=== PATIENT | male | born 2000 | race African-American/Black ===

== ENCOUNTER 2020-07-13 17:48 | Emergency (ER) | payer OTHER ==
--- NOTE | 2020-07-13 18:30 | EDPHYS ---
Physician Documentation [facility] Name: Marquise Ferreira Age: 19 yrs Sex: Male : 2000 Arrival Date: 07/13/2020 Time: 17:51 Bed 25 Private MD: ED Physician Juan M Harding HPI: 07/13 18:22 This 19 yrs old Black Male presents to ER via Ambulatory with complaints of Jaw Pain. cp 18:23 The patient presents with pain. The problem is located in the right lower jaw. Onset: cp The symptoms/episode began/occurred 2 day(s) ago. Duration: The symptoms are intermittent. Associated signs and symptoms: Pertinent positives: swelling, mandibular, Pertinent negatives: anorexia, dysphagia, fever, inability to eat. Severity of symptoms: in the emergency department the symptoms are unchanged, despite home interventions. Historical: - Allergies: 18:14 No Known Allergies; sv - PMHx: 18:14 None; sv - PSHx: 18:14 jaw; sv - Immunization history:: Flu vaccine is not up to date. - Social history:: Smoking status: Patient denies any tobacco usage or history of. Patient uses street drugs, marijuana. ROS: 18:24 Eyes: Negative for injury, pain, redness, and discharge. cp 18:24 Constitutional: Negative for body aches, chills, fever, poor PO intake. 18:24 ENT: Positive for dental pain, ear pain, right lower jaw pain, Negative for drainage from ear(s), sore throat, difficulty swallowing, difficulty handling secretions. 18:24 Cardiovascular: Negative for chest pain. 18:24 Respiratory: Negative for cough, shortness of breath, wheezing. 18:24 Skin: Negative for rash. 18:24 Neuro: Negative for headache. 18:24 All other systems are negative. Exam: 18:25 Head/Face: Normocephalic, atraumatic. cp 18:25 Constitutional: The patient appears in no acute distress, alert, awake, non-toxic, well developed, well nourished. 18:25 Eyes: Periorbital structures: appear normal, Conjunctiva: normal, no exudate, no injection, Sclera: no appreciated abnormality, Lids and lashes: appear normal, bilaterally. 18:25 ENT: External ear(s): are unremarkable, Ear canal(s): are normal, clear, TM's: erythema, that is moderate, on the left, Nose: is normal, Mouth: Lips: moist, Oral mucosa: pink and intact, moist, Tongue: is normal, abscess, is not appreciated, Posterior pharynx: Airway: no evidence of obstruction, patent, Tonsils: are normal in appearance, swelling, is not appreciated, erythema, is not appreciated, exudate, is not appreciated, Dental exam: abscess, is not appreciated, dental caries, that is mild, pain, that is mild, specifically in the lower right third molar (#32), Voice: is normal. 18:25 Neck: Lymph nodes: lymphadenopathy is appreciated, submandibular nodes. 18:25 Chest/axilla: Inspection: normal. 18:25 Cardiovascular: Rate: normal. 18:25 Respiratory: the patient does not display signs of respiratory distress, Respirations: normal, no use of accessory muscles, no retractions, labored breathing, is not present. 18:25 Skin: no rash present. Vital Signs: 18:13 Resp 16; Weight 63.5 kg; Height 6 ft. 2 in. (187.96 cm); sv 18:14 BP 118 / 71; Pulse 75; Resp 16 S; Temp 97.6(TE); Pulse Ox 99% on R/A; ca1 18:40 BP 101 / 54; Pulse 72; Resp 17 S; Pulse Ox 99% on R/A; ca1 18:13 Body Mass Index 17.97 (63.50 kg, 187.96 cm) sv MDM: 18:29 Patient medically screened. cp 18:29 Differential diagnosis: dental caries, dental abscess, pericoronitis, cellulitis. cp 18:29 Data reviewed: vital signs, nurses notes, and as a result, I will discharge patient. cp Counseling: I had a detailed discussion with the patient and/or guardian regarding: the historical points, exam findings, and any diagnostic results supporting the discharge/admit diagnosis, the need for outpatient follow up, a dentist, to return to the emergency department if symptoms worsen or persist or if there are any questions or concerns that arise at home. 18:34 ED course: No active RXs for narcotic pain meds according to [place] prescription monitor cp website. Administered Medications: 18:40 Drug: traMADol 50 mg {Note: rass 0.} Route: PO; ca1 18:40 Follow up: Response: Medication administered at discharge. ca1 Disposition: 07/14 15:58 Co-signature as Attending Physician, Juan M Harding MD I agree with the assessment and kdr plan of care. Disposition: 07/13/20 18:29 Discharged to Home. Impression: Other disorders of teeth and supporting structures. - Condition is Stable. - Discharge Instructions: Dental Pain. - Prescriptions for Amoxicillin 875 mg Oral Tablet - take 1 tablet by ORAL route every 12 hours for 10 days; 20 tablet. Ibuprofen 800 mg Oral Tablet - take 1 tablet by ORAL route every 8 hours As needed take with food; 30 tablet. Tramadol 50 mg Oral Tablet - take 1 tablet by ORAL route every 8 hours as needed; 12 tablet. - Medication Reconciliation Form, Thank You Letter, Antibiotic Education, Prescription Opioid Use form. - Follow up: Private Physician; When: 2 - 3 days; Reason: Recheck today's complaints. - Problem is new. - Symptoms are unchanged. Signatures: Olga Olguin RN RN Juan M Harding MD MD [facility] Slim Winston PA PA cp Isela Mendez RN RN ca1 Corrections: (The following items were deleted from the chart) 07/13 18:41 18:29 07/13/2020 18:29 Discharged to Home. Impression: Other disorders of teeth and ca1 supporting structures. Condition is Stable. Forms are Medication Reconciliation Form, Thank You Letter, Antibiotic Education, Prescription Opioid Use. Follow up: Private Physician; When: 2 - 3 days; Reason: Recheck today's complaints. Problem is new. Symptoms are unchanged. cp 07/14 14:22 07/13 18:33 Differential diagnosis: dental caries, dental abscess, pericoronitis, cp cellulitis cp
--- NOTE | 2020-07-13 18:30 | ER ---
Nurse's Notes [facility] Name: Marquise Ferreira Age: 19 yrs Sex: Male : 2000 Arrival Date: 07/13/2020 Time: 17:51 Bed 25 Private MD: Diagnosis: Other disorders of teeth and supporting structures Presentation: 07/13 18:13 Chief complaint: Patient states: left sided jaw pain, hx jaw surgery. States he "feels sv metal". Started 2 days ago. Coronavirus screen: Client denies travel out of the [place] in the last 14 days. At this time, the client does not indicate any symptoms associated with coronavirus-19. Ebola Screen: No symptoms or risks identified at this time. Risk Assessment: Do you want to hurt yourself or someone else? Patient reports no desire to harm self or others. Onset of symptoms was July 11, 2020. 18:13 Method Of Arrival: Ambulatory sv 18:13 Acuity: VINNY 3 sv 18:14 Initial Sepsis Screen: Does the patient meet any 2 criteria? No. Patient's initial ca1 sepsis screen is negative. Does the patient have a suspected source of infection? No. Patient's initial sepsis screen is negative. Triage Assessment: 18:25 General: Behavior is. ca1 Historical: - Allergies: 18:14 No Known Allergies; sv - PMHx: 18:14 None; sv - PSHx: 18:14 jaw; sv - Immunization history:: Flu vaccine is not up to date. - Social history:: Smoking status: Patient denies any tobacco usage or history of. Patient uses street drugs, marijuana. Screenin:12 Abuse screen: Denies threats or abuse. Denies injuries from another. Nutritional ca1 screening: No deficits noted. Tuberculosis screening: No symptoms or risk factors identified. Fall Risk None identified. Assessment: 18:12 General: Appears in no apparent distress. comfortable. Pain: Complains of pain in lower ca1 right third molar Pain currently is 10 out of 10 on a pain scale. Neuro: Level of Consciousness is awake, alert, obeys commands, Oriented to person, place, time, situation. Cardiovascular: Heart tones S1 S2 present Capillary refill < 3 seconds Patient's skin is warm and dry. EENT: Dental caries noted in lower right third molar (#32). Derm: Skin is intact, is healthy with good turgor, Skin is pink, warm \\T\\ dry. Musculoskeletal: Circulation, motion, and sensation intact. Capillary refill < 3 seconds. 18:40 Reassessment: Patient appears in no apparent distress at this time. Patient is alert, ca1 oriented x 3, equal unlabored respirations, skin warm/dry/pink. Vital Signs: 18:13 Resp 16; Weight 63.5 kg; Height 6 ft. 2 in. (187.96 cm); sv 18:14 BP 118 / 71; Pulse 75; Resp 16 S; Temp 97.6(TE); Pulse Ox 99% on R/A; ca1 18:40 BP 101 / 54; Pulse 72; Resp 17 S; Pulse Ox 99% on R/A; ca1 18:13 Body Mass Index 17.97 (63.50 kg, 187.96 cm) sv ED Course: 17:51 Patient arrived in ED. rg4 18:10 Slim Winston PA is PHCP. cp 18:10 Juan M Harding MD is Attending Physician. cp 18:10 Isela Mendez RN is Primary Nurse. ca1 18:12 No provider procedures requiring assistance completed. Patient did not have IV access ca1 during this emergency room visit. 18:14 Triage completed. sv 18:14 Arm band placed on. sv 18:15 Patient has correct armband on for positive identification. Bed in low position. Call ca1 light in reach. Side rails up X 1. Pulse ox on. NIBP on. Administered Medications: 18:40 Drug: traMADol 50 mg {Note: rass 0.} Route: PO; ca1 18:40 Follow up: Response: Medication administered at discharge. ca1 Outcome: 18:29 Discharge ordered by . cp 18:41 Discharged to home ambulatory, with family. ca1 18:41 Condition: stable 18:41 Discharge instructions given to patient, Instructed on discharge instructions, follow up and referral plans. no drinking with medication, no driving heavy equipment, medication usage, Demonstrated understanding of instructions, follow-up care, medications, Prescriptions given X 2. 18:41 Patient left the ED. ca1 Signatures: Olga Olguin RN RN Slim Winston PA PA cp Garcia, Rubi rg4 Isela Mendez RN RN ca1 Corrections: (The following items were deleted from the chart) 18:25 18:12 Pain: Complains of pain in lower right first molar, lower right second molar and ca1 lower right third molar Pain currently is 10 out of 10 on a pain scale. ca1 18:25 18:12 EENT: Dental caries noted in lower right first molar (#30) ca1 ca1
[2020-07-13] MEDS ORDERED: TRAMADOL HCL 50 MG TAB ONE (18:52)
[2020-07-13 18:54] VITALS: TEMP 97.6; O2SAT 99
[2020-07-13 18:57] VITALS: BP 101/54
== END 2020-07-13 18:41 | disposition home or self-care (01) ==
LOC: ER 17:48
DX: K08.89 Other specified disorders of teeth and supporting structures (principal)
CPT/HCPCS: 99283

== ENCOUNTER 2021-04-08 11:20 | Emergency (ER) | payer BC, OTHER ==
--- OUTSIDE RECORDS SUMMARY | 2021-04-08 11:22 | XMS REPORT | Continuity of Care Document ---
:2000 Author Organization [facility] t Address [address] [place] [address] Care Team Providers Name Role Phone Gonzalez Jade Attending Clinician Payers Payer Name Policy Type Policy Number Effective Date Expiration Date S ource Problems This patient has no known problems. Allergies, Adverse Reactions, Alerts Allergy Allergy Status Severity Reaction(s) Onset Inactive Treating Comm ents Source Name Type Date Date Clinician No Known DA Active U 2013-09 [facility] Allergie 0-23 [place] s 00:00: [address] Medications This patient has no known medications. Procedures This patient has no known procedures. Encounters Start End Encounter Admission Attending Care Care Encounter Source Date/Time Date/Time Type Type Clinicians Facility Department ID 2020-01-27 2020-01-27 Emergency MONICA Carver [id number] 20:35:06 23:09:00 Kaitlin Good [id number] [place] [id number] [place] [id number] Results Test Description Test Time Test Comments Results Result Comments Source COMPREHENSIVE METABOLIC PANEL 2019-04-15 18:56:00 Test Item Value Reference Range Interpretation Comme nts SODIUM (test code = NA) 137.0 mmol/L 133-144 N POTASSIUM (test code = K) 3.9 mmol/L 3.5-5.1 N CHLORIDE (test code = CL) 102 mmol/L 95-105 N CARBON DIOXIDE (test code 27 mmol/L 21-32 N = CO2) ANION GAP (test code = 8.0 GAP calc 4.0-15.0 N GAP) GLUCOSE (test code = GLU) 84 MG/DL 70-110 N BLOOD UREA NITROGEN (test 8 MG/DL 7-18 N code = BUN) GLOMERULAR FILTRATION RATE 119 estGFR >60 T he estimated glomerular (test code = GFR) filtration rate is computed usingp atient race, age, sex, and serum creatinine. If any of theneeded data elements are missing the Laboratory can notcompute an estimation of t he glomerular filt ration rate.The GFR va lue units = ml/min/1.73 met er squared. EstimatedGFR v alues above 60 should be in terpreted as >60, not ane xact number.--- DRUG DOSAGE ALERT --- Drug dosage adjustments uti lize different calculationpara meters. CREATININE (test code = 0.98 MG/DL 0.55-1.30 N Resu lts may be depressed CREAT) if patient is takingN-Acetylc ysteine (NAC) and Metam izole (Dipyrone). TOTAL PROTEIN (test code = 9.3 G/DL 6.4-8.2 H PROT) ALBUMIN (test code = ALB) 4.5 G/DL 3.4-5.0 N ALBUMIN/GLOBULIN RATIO 0.9 RATIO 1.2-2.2 L (test code = A/G) CALCIUM (test code = CA) 9.7 MG/DL 8.5-10.1 N BILIRUBIN TOTAL (test code 2.47 MG/DL 0.00-1.00 H = BILT) BILIRUBIN DIRECT (test 0.32 MG/DL 0.00-0.30 H code = BILD) BILIRUBIN INDIRECT (test 2.15 MG/DL 0.2-1.3 H code = BILIND) SGOT/AST (test code = AST) 22 Unit/L 15-37 N SGPT/ALT (test code = ALT) 22 Unit/L 12-78 N ALKALINE PHOSPHATASE TOTAL 94 Unit/L 45-117 N (test code = ALKP) INDEX HEMOLYSIS (test code 3 SMALL 25-50 MG 1 NORMAL = HEMINDEX) Index/DL INDEX ICTERIC (test code = 2 TRACE 2-5 MG 1 NORMAL ICTINDEX) Index/DL INDEX LIPEMIA (test code = 1 NORMAL <50 MG 1 NORMAL LIPINDEX) Index/DL COMPREHENSIVE METABOLIC [id number] 18:53:00 Test Item Value Reference Range Interpretation Comments SODIUM (test code = 137.0 mmol/L 133-144 N NA) POTASSIUM (test code 3.9 mmol/L 3.5-5.1 N = K) CHLORIDE (test code 102 mmol/L 95-105 N = CL) CARBON DIOXIDE (test 27 mmol/L 21-32 N code = CO2) ANION GAP (test code 8.0 GAP calc 4.0-15.0 N = GAP) GLUCOSE (test code = 84 MG/DL 70-110 N GLU) BLOOD UREA NITROGEN 8 MG/DL 7-18 N (test code = BUN) GLOMERULAR 119 estGFR >60 The estimated FILTRATION RATE glomerular (test code = GFR) filtration rate is computed usingpatient ra ce, age, sex, and s jackie creatinine. If any of theneeded da ta elements are mi ssing the Laboratory can notcompute an estimation of t he glomerular filtration rate .The GFR value units = ml/min/1.73 met er squared. EstimatedGFR va lues above 60 should be interpreted as >60, not anexact number.--- DRUG DOSAGE ALERT -- - Drug dosage adjustments uti lize different calculationpara meter s. CREATININE (test 0.98 MG/DL 0.55-1.30 N Results may be code = CREAT) depressed if p atient is takingN-Acetylc ystei ne (NAC) and Metamizole (Dipyrone). TOTAL PROTEIN (test G/DL 6.4-8.2 code = PROT) ALBUMIN (test code = 4.5 G/DL 3.4-5.0 N ALB) ALBUMIN/GLOBULIN RATIO 1.2-2.2 RATIO (test code = A/G) CALCIUM (test code = 9.7 MG/DL 8.5-10.1 N CA) BILIRUBIN TOTAL MG/DL 0.00-1.00 (test code = BILT) BILIRUBIN DIRECT 0.32 MG/DL 0.00-0.30 H (test code = BILD) BILIRUBIN INDIRECT MG/DL 0.2-1.3 (test code = BILIND) SGOT/AST (test code Unit/L 15-37 = AST) SGPT/ALT (test code Unit/L 12-78 = ALT) ALKALINE PHOSPHATASE Unit/L 45-117 TOTAL (test code = ALKP) INDEX HEMOLYSIS 3 SMALL 25-50 1 NORMAL (test code = MG Index/DL HEMINDEX) INDEX ICTERIC (test 2 TRACE 2-5 1 NORMAL code = ICTINDEX) MG Index/DL INDEX LIPEMIA (test 1 NORMAL <50 1 NORMAL code = LIPINDEX) MG Index/DL CBC W/AUTO [id number] 18:38:00 Test Item Value Reference Range Interpretation Comments WHITE BLOOD CELL (test code = 6.9 K/mm3 4.1-12.1 N WBC) RED BLOOD CELL (test code = RBC) 5.02 M/mm3 3.8-5.5 N HEMOGLOBIN (test code = HGB) 15.6 G/DL 10.6-15.8 N HEMATOCRIT (test code = HCT) 47.4 % 31.8-47.4 N MEAN CELL VOLUME (test code = 94.4 fL 80.1-101.1 N MCV) MEAN CELL HGB (test code = MCH) 31.1 pg 25.3-35.3 N MEAN CELL HGB CONCETRATION (test 32.9 G/DL 32.7-35.1 N code = MCHC) RED CELL DISTRIBUTION WIDTH 12.4 % 12.2-16.4 N (test code = RDW) RED CELL DISTRIBUTION WIDTH 42.5 fL 35.1-43.9 N (test code = RDW-SD) PLATELET COUNT (test code = PLT) 160 K/mm3 155-337 N MEAN PLATELET VOLUME (test code 11.9 fL 7.6-10.4 H = MPV) GRANULOCYTE % (test code = GR%) 61.4 % 37.8-82.6 N IMMATURE GRANULOCYTE % (test 0.3 % 0.0-2.0 N code = IG%) LYMPHOCYTE % (test code = LY%) 26.7 % 14.1-45.4 N MONOCYTE % (test code = MO%) 7.9 % 2.5-11.7 N EOSINOPHIL % (test code = EO%) 3.3 % 0.0-6.2 N BASOPHIL % (test code = BA%) 0.4 % 0.0-2.6 N NUCLEATED RBC % (test code = 0.0 /100WBC% 0.0-1.0 N NRBC%) GRANULOCYTE # (test code = GR#) 4.24 k/mm3 2.0-13.7 N IMMATURE GRANULOCYTE # (test 0.02 K/mm3 0.00-0.03 N code = IG#) LYMPHOCYTE # (test code = LY#) 1.85 K/mm3 0.6-3.8 N MONOCYTE # (test code = MO#) 0.55 K/mm3 0.11-0.59 N EOSINOPHIL # (test code = EO#) 0.23 K/mm3 0.0-0.4 N BASOPHIL # (test code = BA#) 0.03 K/mm3 0.0-0.1 N NUCLEATED RBC # (test code = 0.00 K/mm3 0.00-0.05 N NRBC#) - CT MAXIFAC W/O [id number] 12:05:00 Name: MARQUISE EUGENE [facility] : 2000 Age/S: 18 / M [id number] [address] Unit #: [id number] Loc: [place] [address] Phys: Sage Mehta MD Acct: [id number] Dis Date: Status: REG ER PHONE #: [phone] Exam Date: 04/15/2019 1140 FAX #: Reason: trauma, left lower jaw EXAMS: CPT: [id number] CT MAXIFAC W/O CONTRAST 00171 CLINICAL HISTORY: Swollen jaw, trauma, fracture. CT brain, maxillofacial/mandible. Reformatted sagittal and coronal images. COMPARISON: None. Automated exposure con trol, iterative reconstruction technique, and/or adjustment of mA and/or kV according to patient's size was utilized for optimum radiation dose reduction. An unenhanced study of the maxillofacial area was performed. There is covered as well. The left symphysis shows a nondisplaced transverse fracture seen to the lateral aspect of the incisor. The body of the left mandible with a fairly well aligned fracture. Slight medial displacement seen by one cortical thickness, approximately 2 mm. The oblique view possibly 2 mm of inferior displacement. The fracture seen just behind the last molar/wisdom tooth. The right mandible does not show any distinct fracture. Both TMJs appear to be well aligned. Zygomatic arches major facial bones are symmetric. No fluid in the sinuses for sinus wall abnormality. Orbital contents on the soft tissue window settings appear to be intact. The maxillary ridge appears to be intact although there is some periodontal disease near the 1st premolar with periapical lucency. Some dental caries likely present. Braces. The soft tissue window settings show edema over the mandible especially on the left side. Air bubbles are found in the parapharyngeal space. There appears to be s ome edema at the left neck with subtle shift of the airway shadows towards the right. Edema/hemorrhage down the left neck. The hyoid bone and cartilage structures appear to be symmetric. Temporal bones well- aerated.. . IMPRESSION: Nondisplaced left sym physis fracture with inferior /medially displaced proximal body and ramus junction fracture just PAGE 1 Signed Report (CONTINUED) Name: MARQUISE CHON KNIGHT : 2000 Age/S: 18 / M [id number] Unit #: [id number] Loc: [place] [address] Phys: Sage Mehta MD Acct: [id number] Dis Date: Status: REG ER PHONE #: [phone] Exam Date: 04/15/2019 1140 FAX #: Reason: trauma, left lower jaw EXAMS: CPT: [id number] CT MAXIFAC W/O CONTRAST 24642 <Continued> behind the last molar. The fracture shows approximately 2 mm of displacement in each direction. TMJ alignment preserved. Prominent left facial edema. No foreign body appreciated. Subcutaneous air along the medial parapharyngeal space from the injury. No airway compromise with only subtle shift of the airway towards the right due to edema. No distinct right-sided mandibular fracture. Other major facial bones intact. Minimal sinusitis with no fluid levels. Orbits intact. Location: U19 at 1205 Reported and signed by: Temo Paiz M.D. CC: Sage Mehta MD Technologist:Bert Maynard, RT(R)(CT) CTDI: DLP: Trnscb Date/Time: 04/15/2019 (1205) t.SDR.RCM Orig Print D/T: S: 04/15/2019 (7999) PAGE 2 Signed Report
[2021-04-08] MEDS ORDERED: HYDROCODONE/APAP 5/325 MG TAB ONE (12:42)
[2021-04-08] MEDS ORDERED: AMOX/K CLAV 875 MG TAB ONE (12:42)
--- NOTE | 2021-04-10 16:28 | ER ---
Nurse's Notes [facility] Name: Marquise Ferreira Age: 20 yrs Sex: Male : 2000 Arrival Date: 04/08/2021 Time: 11:26 Bed Waiting Private MD: Diagnosis: Periapical abscess without sinus Presentation: 04/08 12:13 Chief complaint: Patient states: toothache that started last night. Coronavirus screen: iw Client denies travel out of the [place] in the last 14 days. Ebola Screen: Patient negative for fever greater than or equal to 101.5 degrees Fahrenheit, and additional compatible Ebola Virus Disease symptoms Patient denies exposure to infectious person. Patient denies travel to an Ebola-affected area in the 21 days before illness onset. No symptoms or risks identified at this time. Initial Sepsis Screen: Does the patient meet any 2 criteria? No. Patient's initial sepsis screen is negative. Does the patient have a suspected source of infection? No. Patient's initial sepsis screen is negative. Risk Assessment: Do you want to hurt yourself or someone else? Patient reports no desire to harm self or others. Onset of symptoms was April 07, 2021. 12:13 Method Of Arrival: Ambulatory iw 12:13 Acuity: VINNY 5 iw Triage Assessment: 12:14 General: Appears in no apparent distress. comfortable, Behavior is calm, cooperative. iw Pain: Complains of pain in gums. EENT: Reports pain in gums. Historical: - Allergies: 12:15 No Known Allergies; iw - Home Meds: 12:15 None [Active]; iw - PMHx: 12:15 Asthma; iw - PSHx: 12:15 jaw surgery; iw - Immunization history:: Adult Immunizations not up to date. - Social history:: Smoking status: Patient denies any tobacco usage or history of. smokes marijuana 2-3 times per day. Screenin:25 Abuse screen: Denies threats or abuse. Denies injuries from another. Nutritional iw screening: No deficits noted. Tuberculosis screening: No symptoms or risk factors identified. Fall Risk None identified. Assessment: 12:00 General: Appears in no apparent distress. comfortable, Behavior is calm, cooperative. iw Pain: Complains of pain in upper right first bicuspid. Neuro: Level of Consciousness is awake, alert, obeys commands, Oriented to person, place, time, situation, Moves all extremities. Cardiovascular: Patient's skin is warm and dry. Respiratory: Respiratory effort is even, unlabored, Respiratory pattern is regular, symmetrical. Derm: Skin is intact, is healthy with good turgor. Musculoskeletal: Range of motion: intact in all extremities. Vital Signs: 12:13 BP 134 / 90; Pulse 60; Resp 18; Temp 98.3; Pulse Ox 100% ; Weight 68.04 kg; Height 6 iw ft. (182.88 cm); Pain 10/10; 12:13 Body Mass Index 20.34 (68.04 kg, 182.88 cm) iw ED Course: 11:26 Patient arrived in ED. am2 12:00 Patient has correct armband on for positive identification. iw 12:14 Triage completed. iw 12:14 Arm band placed on right wrist. iw 12:17 Laila Mcadams RN is Primary Nurse. iw 12:18 Yanira Olivarez FNP-C is PHCP. kb 12:18 Stormy Felix MD is Attending Physician. kb 12:25 No provider procedures requiring assistance completed. Patient did not have IV access iw during this emergency room visit. Administered Medications: 12:22 Drug: HYDROcodone-acetaminophen 5 mg-325 mg 1 tabs Route: PO; iw 12:25 Follow up: Response: No adverse reaction iw 12:22 Drug: Augmentin (Amoxicillin-Clavulanate) 875 mg Route: PO; iw 12:25 Follow up: Response: No adverse reaction iw Outcome: 12:18 Discharge ordered by MD. kb 12:25 Discharged to home ambulatory, with family. iw 12:25 Condition: good 12:25 Discharge instructions given to patient, family, Instructed on discharge instructions, follow up and referral plans. medication usage, Demonstrated understanding of instructions, follow-up care, medications, Prescriptions given X 2. 12:26 Patient left the ED. iw Signatures: Yanira Olivarez FNP-C FNP-Laila Gooden RN RN iw Giovanna Medley am2 Corrections: (The following items were deleted from the chart) 12:16 12:15 PSHx: None; iw iw
--- NOTE | 2021-04-10 16:28 | EDPHYS ---
Physician Documentation [facility] Name: Marquise Ferreira Age: 20 yrs Sex: Male : 2000 Arrival Date: 04/08/2021 Time: 11:26 Bed Waiting Private MD: ED Physician Stormy Felix HPI: 04/08 17:20 This 20 yrs old Black Male presents to ER via Ambulatory with complaints of Toothache. kb 17:20 The patient presents with pain. The problem is located in the upper right first kb bicuspid. Onset: The symptoms/episode began/occurred this morning. Duration: The symptoms are continuous. Modifying factors: The symptoms are alleviated by nothing, the symptoms are aggravated by chewing. Associated signs and symptoms: Pertinent positives: pain, Pertinent negatives: anorexia, chills, dysphagia, fever, inability to eat, nausea, redness in area, swelling, vomiting. Severity of symptoms: At their worst the symptoms were moderate, in the emergency department the symptoms are unchanged. The patient has experienced a previous episode. The patient has not recently seen a physician. Historical: - Allergies: 12:15 No Known Allergies; iw - Home Meds: 12:15 None [Active]; iw - PMHx: 12:15 Asthma; iw - PSHx: 12:15 jaw surgery; iw - Immunization history:: Adult Immunizations not up to date. - Social history:: Smoking status: Patient denies any tobacco usage or history of. smokes marijuana 2-3 times per day. ROS: 17:19 Constitutional: Negative for fever, chills, and weight loss. kb 17:19 ENT: Positive for dental pain. 17:19 All other systems are negative. Exam: 17:19 Constitutional: This is a well developed, well nourished patient who is awake, alert, kb and in no acute distress. Head/Face: Normocephalic, atraumatic. Respiratory: Respirations even and unlabored. No increased work of breathing, no retractions or nasal flaring. Skin: Warm, dry with normal turgor. Normal color. MS/ Extremity: Pulses equal, no cyanosis. Neurovascular intact. Full, normal range of motion. Neuro: Awake and alert, GCS 15, oriented to person, place, time, and situation. Moves all extremities. Normal gait. Psych: Awake, alert, with orientation to person, place and time. Behavior, mood, and affect are within normal limits. 17:19 ENT: Dental exam: pain, that is mild, specifically in the upper right first bicuspid. Vital Signs: 12:13 BP 134 / 90; Pulse 60; Resp 18; Temp 98.3; Pulse Ox 100% ; Weight 68.04 kg; Height 6 iw ft. (182.88 cm); Pain 10/10; 12:13 Body Mass Index 20.34 (68.04 kg, 182.88 cm) iw MDM: 12:18 Patient medically screened. kb 17:20 Data reviewed: vital signs, nurses notes. Data interpreted: Pulse oximetry: on room air kb is 100 %. Interpretation: normal. Counseling: I had a detailed discussion with the patient and/or guardian regarding: the historical points, exam findings, and any diagnostic results supporting the discharge/admit diagnosis, the need for outpatient follow up, a dentist, to return to the emergency department if symptoms worsen or persist or if there are any questions or concerns that arise at home. ED course: Appointment with dentist on . Administered Medications: 12:22 Drug: HYDROcodone-acetaminophen 5 mg-325 mg 1 tabs Route: PO; iw 12:25 Follow up: Response: No adverse reaction iw 12:22 Drug: Augmentin (Amoxicillin-Clavulanate) 875 mg Route: PO; iw 12:25 Follow up: Response: No adverse reaction iw Disposition Summary: 04/08/21 12:18 Discharge Ordered Location: Home kb Condition: Stable kb Diagnosis - Periapical abscess without sinus kb Followup: kb - With: Emergency Department - When: As needed - Reason: Worsening of condition Followup: kb - With: Private Physician - When: 2 - 3 days - Reason: Recheck today's complaints, Continuance of care, Re-evaluation by your physician Discharge Instructions: - Discharge Summary Sheet kb - Dental Pain, [id number] kb - Dental Abscess, [id number] kb Forms: - Medication Reconciliation Form kb - Thank You Letter kb - Antibiotic Education kb - Prescription Opioid Use kb Prescriptions: - Augmentin 875-125 mg Oral Tablet - take 1 tablet by ORAL route every 12 hours for 10 days; 20 tablet; Refills: 0, kb Product Selection Permitted - Diclofenac Sodium 75 mg Oral tablet,delayed release (DR/EC) - take 1 tablet by ORAL route 2 times per day As needed; 30 tablet; Refills: 0, kb Product Selection Permitted Signatures: Yanira Olivarez FNP-C FNP-Ckb Williams, Irene, RN RN iw Corrections: (The following items were deleted from the chart) 12:16 12:15 PSHx: None; iw iw
[2021-04-10 16:59] VITALS: BP 134/90; TEMP 98.3; O2SAT 100
== END 2021-04-08 12:26 | disposition home or self-care (01) ==
LOC: ER 11:20
DX: K04.7 Periapical abscess without sinus (principal)
CPT/HCPCS: 99283